=== PATIENT | female | born 1980 | race Caucasian/White ===

== ENCOUNTER 2016-04-19 22:22 | Emergency (ER) | payer SELFPAY ==
[~2016-04-19] VITALS: Ht 170.2 cm; Wt 52.0 kg
[~2016-04-19 22:22] MED LIST: ACET325T33 PO; IBUP-1542 PO
[2016-04-19 22:30] VITALS: Ht 170.2 cm; Wt 52.0 kg
== END 2016-04-19 23:08 | disposition left against medical advice (07) ==
LOC: E/R 22:22
DX: Z53.21 Procedure and treatment not carried out due to patient leaving prior to being seen by health care provider (principal)

== ENCOUNTER 2016-05-28 08:17 | Emergency (ER) | payer SELFPAY ==
[~2016-05-28] VITALS: Ht 170.2 cm; Wt 50.0 kg
[2016-05-28 08:20] VITALS: Ht 170.2 cm; Wt 50.0 kg
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
== END 2016-05-28 08:56 | disposition home or self-care (01) ==
LOC: FTE 08:17
DX: M25.512 Pain in left shoulder (principal)
CPT/HCPCS: 99282

== ENCOUNTER 2016-06-21 17:52 | Emergency (ER) | payer SELFPAY ==
[~2016-06-21] VITALS: Wt 44.0 kg
--- NOTE | 2016-06-21 18:28 | ERD ---
ER Documentation Chief Complaint Date/Time DATE: 06/21/16 TIME: 18:19 Chief Complaint FOUND SLEEPING ON SIDEWALK BY BYSTANDERS. NO TRAUMA. DENIES SI OR HI HPI This is a 35-year-old female but had multiple previous emergency room visits, that presents to the emergency department brought in by EMS after she was found sleeping on a sidewalk next to an empty bottle of alcohol. The patient states she denies any illicit drug use. There is no signs of trauma or drug paraphernalia. The patient denies any suicidal homicidal thoughts ideations. She did state that she had consumed the alcohol but this was several hours prior to arrival. She indicates she is not homeless. She denies any chest pain or pressure. She denies headache or neck pain. She has no shortness of breath at rest or exertion. ROS All systems reviewed and are negative except as per history of present illness. Medications Home Meds Active Scripts Ibuprofen* (Motrin*) 600 Mg Tab, 600 MG PO Q6H Y for PAIN AND OR ELEVATED TEMP, #30 TAB Prov:BRENDA HDZ NP 10/05/15 Acetaminophen* (Tylenol*) 325 Mg Tablet, 2 TAB PO Q6 Y for PAIN AND OR ELEVATED TEMP, #30 TAB Prov:HORACIO SHAH MD 06/10/15 Allergies Allergies: Coded Allergies: No Known Drug Allergies (Verified Allergy, Mild, 03/02/15) PMhx/Soc History of Surgery: Yes ("cyst removal") Anesthesia Reaction: No Hx Neurological Disorder: No Hx Respiratory Disorders: No Hx Cardiac Disorders: No Hx Psychiatric Problems: No Hx Miscellaneous Medical Probl: No Hx Alcohol Use: Yes Hx Substance Use: Yes (Marijuana) Hx Tobacco Use: Yes Physical Exam Vitals Vital Signs Date Time Temp Pulse Resp B/P Pulse Ox O2 Delivery O2 Flow Rate FiO2 06/21/16 17:57 98.5 101 20 130/75 98 Physical Exam Constitutional:Well-developed. Well-nourished. Patient is disheveled. HEENT:Normocephalic. Atraumatic.Pupils were equal round reactive to light. Moist mucous membranes.No tonsillar exudates. No nasal septal hematoma. No hemotympanum Neck: No nuchal rigidity. No lymphadenopathy. No posterior cervical spine tenderness or step-offs. Respiratory: Not using accessory muscles of respiration.Lungs were clear to auscultation bilaterally. No rhonchi. No rales. No wheezing. Cardiovascular: Regular rate regular rhythm.No murmurs. No rubs were appreciated.S1, S2 normal. Distal pulses are palpable 2+ bilaterally. GI: Abdomen was soft. Nontender. Non Distended. No pulsatile abdominal masses or bruits. No rebound. No guarding. Bowel sounds were present and normal. Muscle skeletal: Full range of motion of both the upper and lower extremities bilaterally.Normal muscle tone.No assymetrical calf tenderness or swelling. Skin: No petechia, no purpura. No lesions on the palms or the soles of the feet. No maculopapular rash. NEURO: Patient was alert, awake, orientated x3.No facial droop. Gait observed and normal with no ataxia.Speech had regular rate and rhythm. No focal neurological deficits. Patient did smell of alcohol. She denied suicidal homicidal thoughts or ideations Procedures/MDM This patient presented to the emergency department after she had been found sleeping on the sidewalk. There is no signs of trauma or drug paraphernalia. The patient was ambulatory, walking around the emergency department, talking to other patients and nursing staff approached me and indicated that the patient had eloped and left the hospital. No ancillary laboratory work had been drawn as the patient was refusing any blood work. The patient did not have IV access established. She had no ataxia no slurred speech and no signs of intracerebral hemorrhage. Therefore patient eloped without completion of treatment Departure Diagnosis: Primary Impression: Acute alcohol intoxication Complication of substance-induced condition: uncomplicated Qualified Code: F10.120 - Acute alcohol intoxication, uncomplicated Condition: Fair BELLE OREILLY Jun 21, 2016 18:28
== END 2016-06-21 18:34 | disposition left against medical advice (07) ==
LOC: E/R 17:52
DX: F10.120 Alcohol abuse with intoxication, uncomplicated (principal); F17.210 Nicotine dependence, cigarettes, uncomplicated
CPT/HCPCS: 99283

== ENCOUNTER 2016-07-26 12:51 | Emergency (ER) | payer SELFPAY ==
[~2016-07-26] VITALS: Wt 52.3 kg
--- NOTE | 2016-07-26 13:30 | ERD ---
ER Documentation Chief Complaint Date/Time DATE: 07/26/16 TIME: 13:23 Chief Complaint ALOC FOUND ON THE STREETS BIB RA AWAKE, REPOSIVE TO VOICE/REFUSES TO TALK HPI This 36-year-old [place] Reportedly refused to talk to paramedics however now she is wide awake and speaking. According to paramedics she has a history of transportation to the hospital for multiple uses of heroin in the past. She admits to drinking some alcohol earlier today but denies intoxication currently. She states that she has family coming to town and she is embarrassed about what happened. She denies any pain. Says that she did not have any injuries. States that she is otherwise healthy with no other medical problems except for drug abuse. States that she did not use heroin today and only drank alcohol with the last drink being 4 hours ago. Denies any thoughts of wanting to harm herself or others. ROS All systems reviewed and are negative except as per history of present illness. Medications Home Meds Discontinued Scripts Ibuprofen* (Motrin*) 600 Mg Tab, 600 MG PO Q6H Y for PAIN AND OR ELEVATED TEMP, #30 TAB Prov:BRENDA HDZ NP 10/05/15 Acetaminophen* (Tylenol*) 325 Mg Tablet, 2 TAB PO Q6 Y for PAIN AND OR ELEVATED TEMP, #30 TAB Prov:HORACIO SHAH MD 06/10/15 Allergies Allergies: Coded Allergies: No Known Drug Allergies (Verified Allergy, Mild, 07/26/16) PMhx/Soc Medical and Surgical Hx: Unable to obtain History of Surgery: Yes ("cyst removal") Anesthesia Reaction: No Hx Neurological Disorder: No Hx Respiratory Disorders: No Hx Cardiac Disorders: No Hx Psychiatric Problems: No Hx Miscellaneous Medical Probl: No Hx Alcohol Use: No (UNK) Hx Substance Use: No (UNK) Hx Tobacco Use: No (UNK) Smoking Status: Unknown if ever smoked Physical Exam Vitals Vital Signs Date Time Temp Pulse Resp B/P Pulse Ox O2 Delivery O2 Flow Rate FiO2 07/26/16 13:06 99.3 102 26 136/89 96 Physical Exam Const: [] No distress Head: Atraumatic Eyes: Normal Conjunctiva, EOMI, PRL ENT: Normal External Ears, Nose and Mouth. Moist mucous membranes of the mouth. Neck: Full range of motion..~No midline tenderness.. Resp: Clear to auscultation bilaterally Cardio: Regular rate and rhythm, no murmurs Abd: Soft, non tender, non distended. Normal bowel sounds Skin: No petechiae or rashes Back: No midline or flank tenderness Ext: No cyanosis, or edema, distal pulses intact all 4 extremities, small erythematous lesions resembling track thakkar in the left antecubital fossa. Neur: Awake and alert and oriented 3, cranial nerves II through XII intact, no cerebellar deficits, normal gait. Psych: Normal Mood and Affect. Very talkative Procedures/MDM 36-year-old female with alcohol intoxication. Still appears mildly intoxicated on arrival. Placed in a gurney on a monitor. She was ambulating in the emergency room well to go to the bathroom. According to staff she apparently eloped. She had a completely normal neurological exam no signs of trauma. Hospital staff is still trying to locate her. Departure Diagnosis: Primary Impression: Alcoholic intoxication Condition: Stable RAJANI CASAREZ DO July 26, 2016 13:30
== END 2016-07-26 16:28 | disposition left against medical advice (07) ==
LOC: E/R 12:51
DX: F10.129 Alcohol abuse with intoxication, unspecified (principal); R40.2132 Coma scale, eyes open, to sound, at arrival to emergency department; R40.2242 Coma scale, best verbal response, confused conversation, at arrival to emergency department; R40.2352 Coma scale, best motor response, localizes pain, at arrival to emergency department
CPT/HCPCS: 99283

== ENCOUNTER 2016-09-08 13:11 | Emergency (ER) | payer MEDICAID ==
[~2016-09-08] VITALS: Ht 165.1 cm; Wt 60.0 kg
[~2016-09-08 13:11] MED LIST changes: -ACET325T33 PO; +ALPR1TAB2; +CLON-412 PO; -IBUP-1542 PO; +MULTI PO
[2016-09-08 13:17] VITALS: Ht 165.1 cm; Wt 60.0 kg
--- NOTE | 2016-09-08 13:52 | ERD ---
ER Documentation Chief Complaint Date/Time DATE: 09/08/16 TIME: 13:50 Chief Complaint PT BIBA FOUND ETOH INTOXICATION ON SOMEONES LAWN. HPI This 36-year-old female who is found in the front yard of someone's house intoxicated. These neighbors called EMS to pick the patient up. The patient states that she is not homeless and has a house. She says she was drinking last night and said she fell in someone's yard and to stay there. Patient is denying any pain. Denies any hallucinations denies any suicidal or homicidal thoughts. Denies any headache chest pain back pain abdominal pain back pain. ROS All systems reviewed and are negative except as per history of present illness. Medications Home Meds Discontinued Reported Medications Alprazolam* (Xanax*) 1 Mg Tab 02/28/11 Clonazepam* (Klonopin*) 1 Mg Tablet, 1 MG PO DAILY 02/28/11 Allergies Allergies: Coded Allergies: Unknown: Unable to obtain (Unverified , 09/08/16) PMhx/Soc History of Surgery: No Anesthesia Reaction: No Hx Neurological Disorder: Yes (HX SEIZURES) Hx Respiratory Disorders: No Hx Cardiac Disorders: No Hx Psychiatric Problems: Yes (HX ADD) Hx Miscellaneous Medical Probl: No Hx Alcohol Use: Yes (ETOH ABUSE) Hx Substance Use: Yes (HX CRYSTAL METH ABUSE) Hx Tobacco Use: No Smoking Status: Current some day smoker FmHx Family History: No coronary disease Physical Exam Vitals Vital Signs Date Time Temp Pulse Resp B/P Pulse Ox O2 Delivery O2 Flow Rate FiO2 09/08/16 13:17 97.6 88 19 127/87 98 Physical Exam Const: Well-developed, well-nourished, appears slightly intoxicated but no slurred speech Head: Atraumatic, normocephalic Eyes: Normal Conjunctiva, PERRLA, EOMI, normal sclera, no nystagmus ENT: Normal External Ears, Nose and Mouth, moist mucus membranes. Neck: Full range of motion. No meningismus, no lymphadenopathy. Resp: Clear to auscultation bilaterally, no wheezing, rhonchi, rales Cardio: Regular rate and rhythm, no murmurs, S1 S2 present Abd: Soft, non tender x 4, non distended. Normal bowel sounds, no guarding or rebound, no pulsitile abdominal masses or bruits Skin: No petechiae or rashes, no ecchymosis , no maculopapular rash Back: No midline or flank tenderness Ext: No cyanosis, or edema, FROM x 4, normal inspection, neurovascularly intact x 4 Neur: Awake and alert, STR 5/5 x 4, sensation intact x 4, no focal findings, cerebellum intact Psych: Normal Mood and Affect Procedures/MDM Patient refused any blood work and CAT scan of head. Patient left the ER without signing AMA. She says she feels fine rapidly left the ER Departure Diagnosis: Primary Impression: Alcoholic intoxication Complication of substance-induced condition: with unspecified complication Qualified Code: F10.129 - Alcoholic intoxication, with unspecified complication Condition: CEDRIC Hartman DO Sep 08, 2016 13:52
== END 2016-09-08 13:51 | disposition left against medical advice (07) ==
LOC: MERGE 13:11 → E/R 13:11
DX: F10.129 Alcohol abuse with intoxication, unspecified (principal); F17.210 Nicotine dependence, cigarettes, uncomplicated
CPT/HCPCS: 99283

== ENCOUNTER 2016-09-16 00:43 | Emergency (ER) | payer MEDICAID, OTHER ==
[~2016-09-16 00:43] MED LIST changes: -ALPR1TAB2; -CLON-412 PO
[2016-09-16 02:15] LABS: ADD SCAN DIFF NO
[2016-09-16 02:17] LABS: BASOPHIL # 0.1 10^3/ul (0.0-0.1); BASOPHILS % 0.8 % (0.0-2.0); EOSINOPHILS # 0.3 10^3/ul (0.0-0.5); EOSINOPHILS % 3.7 % (0.0-7.0); HEMATOCRIT 36.9 % (37.0-47.0); HEMOGLOBIN 12.1 g/dl (12.0-16.0); LYMPHOCYTES # 3.3 10^3/ul (0.8-2.9); LYMPHOCYTES % 42.9 % (15.0-51.0); MEAN CORPUSCULAR HEMOGLOBIN 31.8 pg (29.0-33.0); MEAN CORPUSCULAR HGB CONC 32.8 g/dl (32.0-37.0); MEAN CORPUSCULAR VOLUME 97.1 fl (82.0-101.0); MEAN PLATELET VOLUME 9.5 fl (7.4-10.4); MONOCYTE # 0.4 10^3/ul (0.3-0.9); MONOCYTES % 5.8 % (0.0-11.0); NEUTROPHIL # 3.6 10^3/ul (1.6-7.5); NEUTROPHILS % 46.5 % (39.0-77.0); PLATELET COUNT 224 10^3/UL (140-415); RED CELL DISTRIBUTION WIDTH 12.9 % (11.5-14.5); WHITE BLOOD COUNT 7.7 10^3/ul (4.8-10.8)
[2016-09-16 02:36] VITALS: TEMP 98.1
[2016-09-16 02:36] LABS: ALANINE AMINOTRANSFERASE 154 IU/L (13-69); ALBUMIN/GLOBULIN RATIO 1.17; ALKALINE PHOSPHATASE 135 IU/L (42-121); ANION GAP 22 (8-16); ASPARTATE AMINO TRANSFERASE 380 IU/L (15-46); BLOOD UREA NITROGEN 10 mg/dl (7-20); CALCIUM 8.4 mg/dl (8.4-10.2); CARBON DIOXIDE 23 mmol/L (21-31); CHLORIDE 107 mmol/L (97-110); CREATININE 0.47 mg/dl (0.44-1.00); GLUCOSE 99 mg/dl (70-220); POTASSIUM 3.3 mmol/L (3.5-5.1); SODIUM 149 mmol/L (135-144); TOTAL PROTEIN 7.4 g/dl (6.1-8.1)
[2016-09-16 02:43] LABS: ACETAMINOPHEN < 10.0 ug/ml (10.0-30.0); SALICYLATE < 1.0 mg/dl (5.0-30.0)
--- NOTE | 2016-09-16 05:09 | ERD ---
ER Documentation Chief Complaint Date/Time DATE: 09/16/16 TIME: 05:09 Chief Complaint bib RA 39 found altered in [place] parking lot HPI 42-year-old female brought in by rescue 39 drink alcohol. Patient comes in [facility] administering alcohol. No evidence of trauma. No other current complaints. ROS All systems reviewed and are negative except as per history of present illness. PMhx/Soc Medical and Surgical Hx: Unable to obtain Hx Alcohol Use: Yes Hx Tobacco Use: Yes Smoking Status: Current every day smoker Physical Exam Vitals Vital Signs Date Time Temp Pulse Resp B/P Pulse Ox O2 Delivery O2 Flow Rate FiO2 09/16/16 04:31 82 18 153/93 98 Room Air 09/16/16 02:36 98.1 77 20 130/92 97 Room Air 09/16/16 00:56 98.1 100 17 152/99 96 Physical Exam Const: [] Head: Atraumatic Eyes: Normal Conjunctiva ENT: Normal External Ears, Nose and Mouth. Neck: Full range of motion..~ No meningismus. Resp: Clear to auscultation bilaterally Cardio: Regular rate and rhythm, no murmurs Abd: Soft, non tender, non distended. Normal bowel sounds Skin: No petechiae or rashes Back: No midline or flank tenderness Ext: No cyanosis, or edema Neur: Awake and alert Psych: Normal Mood and Affect Result Diagram: 09/16/1614309/16/16143 Results 24 hrs Laboratory Tests Test 09/16/16 01:44 White Blood Count 7.710^3/ul Red Blood Count 3.8010^6/ul Hemoglobin 12.1g/dl Hematocrit 36.9% Mean Corpuscular Volume 97.1fl Mean Corpuscular Hemoglobin 31.8pg Mean Corpuscular Hemoglobin Concent 32.8g/dl Red Cell Distribution Width 12.9% Platelet Count 15178^3/UL Mean Platelet Volume 9.5fl Neutrophils % 46.5% Lymphocytes % 42.9% Monocytes % 5.8% Eosinophils % 3.7% Basophils % 0.8% Nucleated Red Blood Cells % 0.0/100WBC Neutrophils # 3.610^3/ul Lymphocytes # 3.310^3/ul Monocytes # 0.410^3/ul Eosinophils # 0.310^3/ul Basophils # 0.110^3/ul Nucleated Red Blood Cells # 0.010^3/ul Sodium Level 149mmol/L Potassium Level 3.3mmol/L Chloride Level 107mmol/L Carbon Dioxide Level 23mmol/L Anion Gap 22 Blood Urea Nitrogen 10mg/dl Creatinine 0.47mg/dl Glucose Level 99mg/dl Calcium Level 8.4mg/dl Total Bilirubin 0.0mg/dl Direct Bilirubin 0.00mg/dl Indirect Bilirubin 0.0mg/dl Aspartate Amino Transf (AST/SGOT) 380IU/L Alanine Aminotransferase (ALT/SGPT) 154IU/L Alkaline Phosphatase 135IU/L Total Protein 7.4g/dl Albumin 4.0g/dl Globulin 3.40g/dl Albumin/Globulin Ratio 1.17 Serum HCG, Qualitative NEGATIVE Salicylates Level < 1.0mg/dl Acetaminophen Level < 10.0ug/ml Ethyl Alcohol Level 289.0mg/dl Procedures/MDM Medical decision-makin-year-old female evidence of alcohol consumption. No evidence of trauma. At this point clinically stable for outpatient management. Alert and oriented times work oriented speech good decision-making capacity and ability to pass a road test and negotiate community. Advised to stop drinking. Departure Diagnosis: Primary Impression: Alcoholic intoxication Complication of substance-induced condition: uncomplicated Qualified Code: F10.120 - Alcoholic intoxication, uncomplicated Condition: Stable Patient Instructions: Alcohol Intoxication LIN KIMBROUGH Sep 16, 2016 05:09
[2016-09-16 08:39] VITALS: BP 160/99; PULSE 92; RESP 16
== END 2016-09-16 10:30 | disposition left against medical advice (07) ==
LOC: EDBD 00:43 → E/R 00:43 → MERGE 00:43 → E/R 10:30
DX: F10.120 Alcohol abuse with intoxication, uncomplicated (principal); R40.2252 Coma scale, best verbal response, oriented, at arrival to emergency department; F17.210 Nicotine dependence, cigarettes, uncomplicated; R40.2142 Coma scale, eyes open, spontaneous, at arrival to emergency department; R40.2362 Coma scale, best motor response, obeys commands, at arrival to emergency department
CPT/HCPCS: 36415; 80053; 80306; 84703; 85025; Z7502; 99283

== ENCOUNTER 2016-09-28 20:24 | Emergency (ER) | payer MEDICAID, OTHER ==
[~2016-09-28] VITALS: Ht 167.6 cm; Wt 50.0 kg
[2016-09-28 20:27] VITALS: Ht 167.6 cm; Wt 50.0 kg
--- NOTE | 2016-09-28 20:51 | RADRPT ---
PROCEDURE: CT Head without. CLINICAL INDICATION: Altered mental status. TECHNIQUE: The study was performed utilizing a multi-slice, multidetector CT scanner. Direct spira l 1 mm axial sections were obtained through the head without the use of intravenous contrast materia l. 1 or more of the following dose reduction techniques were utilized: Automated exposure control, adjustment of the mA and/or kV according to patient's size, iterative reconstruction technique. Co brayden and sagittal reformations were obtained. The images were reviewed on a PACS workstation. RADIATION DOSE: CTDIvol: 45.0 mGyDLP: 720.2 mGy-cm COMPARISON: No prior studies are available for comparison. FINDINGS: There is moderate amount of motion artifact through the skull base/lower cranial vault, limiting alis luation in this region. There is no intracranial hemorrhage, extra-axial fluid collection, mass les ion, midline shift or hydrocephalus. There is moderate atherosclerosis involving the right supracli noid internal carotid artery, which is nonspecific. The ventricles, sulci and cisterns are within n ormal limits. The white matter is unremarkable. The bolden-white matter differentiation is preserved . The basal cisterns are patent. The midline structures are intact. The orbits, calvarium and ext racranial soft tissues are normal in appearance. The visualized paranasal sinuses, mastoid air cells and middle ear cavities are normally aerated. There is pneumatization of the bilateral petrous apic es without evidence of inflammatory changes, normal variant. IMPRESSION: 1. No acute intracranial abnormality. No intracranial hemorrhage, extra-axial fluid collection, ma ss lesion or hydrocephalous. 2. Moderate atherosclerosis involving the right supraclinoid internal carotid artery, which is nons pecific. RPTAT: HGAS .Lukas Rocha MD, MD Date Time Electronically viewed and signed by .Lukas Rocha MD, MD on 09/28/2016 20:51 .S/
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
[2016-09-28 21:33] VITALS: BP 125/78; PULSE 77; RESP 16; TEMP 98.6
== END 2016-09-28 21:49 | disposition home or self-care (01) ==
LOC: MERGE 20:24 → EDBD 20:24 → E/R 20:24
DX: F10.121 Alcohol abuse with intoxication delirium (principal); R41.82 Altered mental status, unspecified
CPT/HCPCS: 70450; 82962; Z7502

== ENCOUNTER 2016-10-17 15:59 | Emergency (ER) | payer MEDICAID ==
[~2016-10-17] VITALS: Ht 165.1 cm; Wt 65.0 kg
[2016-10-17 16:07] VITALS: Ht 165.1 cm; Wt 65.0 kg
[2016-10-17] MEDS: IBUPROFEN 800 MG TAB PO ONE ×2 (16:21→16:27)
--- NOTE | 2016-10-17 16:41 | RADRPT ---
PROCEDURE: XR Hand. CLINICAL INDICATION: Right hand pain. TECHNIQUE: Three views of the right hand were obtained. COMPARISON: None available. FINDINGS: There is no acute fracture, dislocation, or other osteoarticular abnormality. The alignm ent is normal and the soft tissues are unremarkable. There is no radiopaque foreign body. The osse ous mineralization is within normal limits. IMPRESSION: 1. Unremarkable right hand x-ray series. RPTAT: HLBP .Matthew Patel MD, MD Date Time Electronically viewed and signed by .Matthew Patel MD, on 10/17/2016 16:41 .P/
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
[2016-10-17] MEDS ORDERED: LORAZEPAM 0.5 MG TAB PO ONE (17:00)
== END 2016-10-17 17:56 | disposition home or self-care (01) ==
LOC: E/R 15:59
DX: F10.10 Alcohol abuse, uncomplicated (principal); S60.221A Contusion of right hand, initial encounter; Y04.0XXA Assault by unarmed brawl or fight, initial encounter; Y92.9 Unspecified place or not applicable; Z87.891 Personal history of nicotine dependence
CPT/HCPCS: 73130; Z7502; Z7610

== ENCOUNTER 2016-11-11 11:35 | Emergency (ER) | payer OTHER, MEDICAID ==
[~2016-11-11] VITALS: Ht 167.6 cm; Wt 50.0 kg
[2016-11-11 11:35] VITALS: Ht 167.6 cm; Wt 50.0 kg
--- NOTE | 2016-11-11 12:08 | RADRPT ---
PROCEDURE: Chest Radiograph. CLINICAL INDICATION: To mental status TECHNIQUE: Single frontal chest radiograph. COMPARISON: None available FINDINGS: The cardiomediastinal silhouette is within normal limits. No infiltrate or effusion is seen. Th e bones are intact. IMPRESSION: 1. Unremarkable chest radiograph. RPTAT: HJBF .Kris Dawn MD, MD Date Time Electronically viewed and signed by .Kris Dawn MD, on 11/11/2016 12:08 .B/
[2016-11-11] MEDS ORDERED: SOD CHLORIDE 0.9% 1,000 ML IV ONE (12:30)
[2016-11-11 12:50] LABS: BASOPHIL # 0.1 10^3/ul (0.0-0.1); BASOPHILS % 0.8 % (0.0-2.0); EOSINOPHILS # 0.3 10^3/ul (0.0-0.5); EOSINOPHILS % 3.6 % (0.0-7.0); HEMATOCRIT 38.3 % (37.0-47.0); HEMOGLOBIN 13.2 g/dl (12.0-16.0); LYMPHOCYTES # 2.3 10^3/ul (0.8-2.9); LYMPHOCYTES % 29.7 % (15.0-51.0); MEAN CORPUSCULAR HEMOGLOBIN 33.3 pg (29.0-33.0); MEAN CORPUSCULAR HGB CONC 34.5 g/dl (32.0-37.0); MEAN CORPUSCULAR VOLUME 96.7 fl (82.0-101.0); MEAN PLATELET VOLUME 9.9 fl (7.4-10.4); MONOCYTE # 0.5 10^3/ul (0.3-0.9); MONOCYTES % 6.1 % (0.0-11.0); NEUTROPHILS % 59.4 % (39.0-77.0); PLATELET COUNT 215 10^3/UL (140-415); RED BLOOD COUNT 3.96 10^6/ul (4.20-5.40); RED CELL DISTRIBUTION WIDTH 12.1 % (11.5-14.5); WHITE BLOOD COUNT 7.8 10^3/ul (4.8-10.8)
[2016-11-11 13:06] LABS: INR 0.87; PROTIME 11.8 Sec (12.2-14.2); PT RATIO 0.9
[2016-11-11 13:07] LABS: PARTIAL THROMBOPLASTIN TIME 26.9 Sec (25.0-35.0)
[2016-11-11 13:09] LABS: ALANINE AMINOTRANSFERASE 79 IU/L (13-69); ALBUMIN 3.9 g/dl (3.3-4.9); ALKALINE PHOSPHATASE 121 IU/L (42-121); ANION GAP 17 (8-16); ASPARTATE AMINO TRANSFERASE 227 IU/L (15-46); BILIRUBIN,INDIRECT 0.4 mg/dl (0-1.1); BILIRUBIN,TOTAL 0.4 mg/dl (0.2-1.3); BLOOD UREA NITROGEN 17 mg/dl (7-20); CALCIUM 8.8 mg/dl (8.4-10.2); CARBON DIOXIDE 21 mmol/L (21-31); CHLORIDE 105 mmol/L (97-110); CREATININE 0.69 mg/dl (0.44-1.00); GLUCOSE 86 mg/dl (70-220); POTASSIUM 3.4 mmol/L (3.5-5.1); SODIUM 140 mmol/L (135-144); TOTAL PROTEIN 8.2 g/dl (6.1-8.1)
[2016-11-11 13:17] LABS: ACETAMINOPHEN < 10.0 ug/ml (10.0-30.0); SALICYLATE < 1.0 mg/dl (5.0-30.0)
--- NOTE | 2016-11-11 13:39 | RADRPT ---
PROCEDURE: CT Brain without contrast. CLINICAL INDICATION: Altered Mental Status TECHNIQUE: A multiplanar CT of the brain was performed on a CT scanner utilizing axial imaging fro m the skull base through the vertex without IV contrast. The CTDIvol is 45.01 mGy and the DLP is 63 0.2 mGycm. One or more of the following dose reduction techniques were utilized: Automated exposur e control, adjustment of the mA and/or kV according to patient size, use of iterative reconstruction technique. COMPARISON: None FINDINGS: No evidence of intracranial hemorrhage or abnormal extra-axial fluid collection. The brain parenchyma is normal attenuation morphology with preservation of bolden white differentiatio n and age appropriate size of the ventricles and subarachnoid spaces. Minimal mucosal thickening in the ethmoid air cells. Mildly ectatic and calcified right supraclinoid internal carotid artery. CT or MR angiography may be considered for further evaluation. The basal cisterns, posterior fossa contents, brainstem, craniocervical junction, orbits, pituitary axis, paranasal sinuses, mastoid air cells, and calvarium are unremarkable. IMPRESSION: 1. No intracranial hemorrhage or acute intracranial abnormality. 2. Mildly ectatic and calcified right supraclinoid internal carotid artery. CT or MRI angiography i n the considered for further evaluation. RPTAT:AAJJ Physician Percy Date Time Electronically viewed and signed by Physician Percy on 11/11/2016 13:39 PADMA/
[2016-11-11] MEDS ORDERED: POTASSIUM CHLORIDE (SR) 20 MEQ TAB PO STA (15:04)
--- NOTE | 2016-11-11 15:08 | ERA ---
ER Documentation Chief Complaint Date/Time DATE: 11/11/16 TIME: 15:01 Chief Complaint Altered mental status HPI The patient is a 36-year-old female, presenting with acute altered mental status. She was [place] the park, unable to provide a history, she came in as Yuly Tucker. The history is obtained from the channel program manager Past medical/surgical history/social history/review of system: Unable to obtain due to her condition ROS All systems reviewed and are negative except as per history of present illness. Medications Home Meds Unable to Obtain Active Prescriptions or Reported Meds Allergies Allergies: Coded Allergies: Unknown: Unable to obtain (Unverified , 11/11/16) PT UNREPONSIVE PMhx/Soc Medical and Surgical Hx: Unable to obtain Hx Alcohol Use: Yes Hx Substance Use: No (UNKNOWN) Hx Tobacco Use: No Smoking Status: Unknown if ever smoked Physical Exam Vitals Vital Signs Date Time Temp Pulse Resp B/P Pulse Ox O2 Delivery O2 Flow Rate FiO2 11/11/16 13:18 97.8 92 15 145/103 99 Room Air 11/11/16 11:35 97.8 94 16 117/79 98 Physical Exam Const: No acute distress. Head: Atraumatic. Eyes: Normal Conjunctiva. ENT: Normal External Ears, Nose and Mouth. Neck: Full range of motion. No meningismus. Resp: Clear to auscultation bilaterally. Cardio: Regular rate and rhythm. Abd: Soft, non distended, normal bowel sounds, non tender. Skin: No petechiae or rashes. Back: No midline or flank tenderness. Ext: No cyanosis, or edema. Neur: Limited due to her condition Psych: Limited due to her condition Result Diagram: 11/11/16 1210 11/11/16 1210 Results 24 hrs Laboratory Tests Test 11/11/16 11:54 11/11/16 12:10 Bedside Glucose 87mg/dL White Blood Count 7.810^3/ul Red Blood Count 3.9610^6/ul Hemoglobin 13.2g/dl Hematocrit 38.3% Mean Corpuscular Volume 96.7fl Mean Corpuscular Hemoglobin 33.3pg Mean Corpuscular Hemoglobin Concent 34.5g/dl Red Cell Distribution Width 12.1% Platelet Count 48235^3/UL Mean Platelet Volume 9.9fl Neutrophils % 59.4% Lymphocytes % 29.7% Monocytes % 6.1% Eosinophils % 3.6% Basophils % 0.8% Nucleated Red Blood Cells % 0.0/100WBC Neutrophils # (Manual) 4.610^3/ul Lymphocytes # 2.310^3/ul Monocytes # 0.510^3/ul Eosinophils # 0.310^3/ul Basophils # 0.110^3/ul Nucleated Red Blood Cells # 0.010^3/ul Prothrombin Time 11.8Sec Prothrombin Time Ratio 0.9 INR International Normalized Ratio 0.87 Activated Partial Thromboplast Time 26.9Sec Sodium Level 140mmol/L Potassium Level 3.4mmol/L Chloride Level 105mmol/L Carbon Dioxide Level 21mmol/L Anion Gap 17 Blood Urea Nitrogen 17mg/dl Creatinine 0.69mg/dl Glucose Level 86mg/dl Calcium Level 8.8mg/dl Total Bilirubin 0.4mg/dl Direct Bilirubin 0.00mg/dl Indirect Bilirubin 0.4mg/dl Aspartate Amino Transf (AST/SGOT) 227IU/L Alanine Aminotransferase (ALT/SGPT) 79IU/L Alkaline Phosphatase 121IU/L Total Protein 8.2g/dl Albumin 3.9g/dl Globulin 4.30g/dl Albumin/Globulin Ratio 0.90 Serum HCG, Qualitative NEGATIVE Salicylates Level < 1.0mg/dl Acetaminophen Level < 10.0ug/ml Ethyl Alcohol Level 199.0mg/dl Current Medications Medications (Trade) Dose Ordered Sig/Sukhdeep Route PRN Reason Start Time Stop Time Status Last Admin Dose Admin Sodium Chloride (NS) 1,000 ml @ 1,000 mls/hr Q1H ONCE IV 11/11/16 12:30 11/11/16 13:29 DC 11/11/16 12:59 Procedures/MDM [place] [address] Radiology Main Line: [phone] DIAGNOSTIC IMAGING REPORT Patient: YULY TUCKER : 03/03/1974 Age: 42 Sex: F MR #: [id number] DOS: 11/11/16 1151 Ordering MD: HORACIO SHAH MD Location: E/R Room/Bed: PROCEDURE: Chest Radiograph. CLINICAL INDICATION: To mental status TECHNIQUE: Single frontal chest radiograph. COMPARISON: None available FINDINGS: The cardiomediastinal silhouette is within normal limits. No infiltrate or effusion is seen. The bones are intact. IMPRESSION: 1. Unremarkable chest radiograph. RPTAT: HJBF .Kris Dawn MD, MD Date Time Electronically viewed and signed by .Kris Dawn MD, MD on 2016 12:08 .B/ CC: HORACIO SHAH MD [place] [address] Radiology Main Line: [phone] DIAGNOSTIC IMAGING REPORT Patient: YULY TUCKER : 03/03/1974 Age: 42 Sex: F MR #: [id number] DOS: 11/11/16 1151 Ordering MD: HORACIO SHAH MD Location: E/R Room/Bed: PROCEDURE: CT Brain without contrast. CLINICAL INDICATION: Altered Mental Status TECHNIQUE: A multiplanar CT of the brain was performed on a CT scanner utilizing axial imaging from the skull base through the vertex without IV contrast. The CTDIvol is 45.01 mGy and the DLP is 630.2 mGycm. One or more of the following dose reduction techniques were utilized: Automated exposure control, adjustment of the mA and/or kV according to patient size, use of iterative reconstruction technique. COMPARISON: None FINDINGS: No evidence of intracranial hemorrhage or abnormal extra-axial fluid collection. The brain parenchyma is normal attenuation morphology with preservation of bolden white differentiation and age appropriate size of the ventricles and subarachnoid spaces. Minimal mucosal thickening in the ethmoid air cells. Mildly ectatic and calcified right supraclinoid internal carotid artery. CT or MR angiography may be considered for further evaluation. The basal cisterns, posterior fossa contents, brainstem, craniocervical junction , orbits, pituitary axis, paranasal sinuses, mastoid air cells, and calvarium are unremarkable. IMPRESSION: 1. No intracranial hemorrhage or acute intracranial abnormality. 2. Mildly ectatic and calcified right supraclinoid internal carotid artery. CT or MRI angiography in the considered for further evaluation. RPTAT:AAJJ Scar Hdz Physician Date Time Electronically viewed and signed by Scar Hdz Physician on 11/11/2016 13:39 PADMA/ CC: HORACIO SHAH MD EKG: Read by emergency physician Rate/Rhythm: Normal Sinus Rhythm 91 beats/min QRS, ST, T-waves: No ST elevation, no T inversion, LAE Impression: Abnormal EKG MEDICAL MAKING DECISION: The patient is a 36-year-old female, presenting with acute alcohol intoxication. She was unable to provide any history upon arrival to the ER, however after many hours in the ER, she is now awake, alert, able to answer question appropriately and ambulate independently; she is stable for outpatient follow-up. She was treated with 1 L normal saline for clinical dehydration, potassium chloride 20 daily: P.o. for acute hypokalemia with good response The differential diagnoses considered include but are not limited to medication non-compliance, alcohol intoxication or withdrawal, drug intoxication or withdrawal, endocrine disorder, trauma, CVA, tumor, metabolic encephalopathy, septic encephalopathy. Departure Diagnosis: Primary Impression: Alcohol abuse Additional Impressions: Hypokalemia Dehydration Condition: Good Patient Instructions: Alcohol Abuse Referrals: [facility] YOU HAVE RECEIVED A MEDICAL SCREENING EXAM AND THE RESULTS INDICATE THAT YOU DO NOT HAVE A CONDITION THAT REQUIRES URGENT TREATMENT IN THE EMERGENCY DEPARTMENT. FURTHER EVALUATION AND TREATMENT OF YOUR CONDITION CAN WAIT UNTIL YOU ARE SEEN IN YOUR DOCTORS OFFICE WITHIN THE NEXT 1-2 DAYS. IT IS YOUR RESPONSIBILITY TO MAKE AN APPOINTMENT FOR FOLOW-UP CARE. IF YOU HAVE A PRIMARY DOCTOR --you should call your primary doctor and schedule an appointment IF YOU DO NOT HAVE A PRIMARY DOCTOR YOU CAN CALL OUR PHYSICIAN REFERRAL HOTLINE AT IF YOU CAN NOT AFFORD TO SEE A PHYSICIAN YOU CAN CHOSE FROM THE FOLLOWING [facility] [address] [facility]. [facility] [address] [facility]. [facility] [address] [facility] [facility] [address] [facility] [address] [facility]. [facility]. [address] [facility]. [facility] YOU HAVE RECEIVED A MEDICAL SCREENING EXAM AND THE RESULTS INDICATE THAT YOU DO NOT HAVE A CONDITION THAT REQUIRES URGENT TREATMENT IN THE EMERGENCY DEPARTMENT. FURTHER EVALUATION AND TREATMENT OF YOUR CONDITION CAN WAIT UNTIL YOU ARE SEEN IN YOUR DOCTORS OFFICE WITHIN THE NEXT 1-2 DAYS. IT IS YOUR RESPONSIBILITY TO MAKE AN APPOINTMENT FOR FOLOW-UP CARE. IF YOU HAVE A PRIMARY DOCTOR --you should call your primary doctor and schedule and appointment IF YOU DO NOT HAVE A PRIMARY DOCTOR YOU CAN CALL OUR PHYSICIAN REFERRAL HOTLINE AT . IF YOU CAN NOT AFFORD TO SEE A PHYSICIAN YOU CAN CHOSE FROM THE FOLLOWING COUNTS INCLUDE 234 BEDS AT THE [facility] INSTITUTIONS: [place] [address] Additional Instructions: County: Go to any of the following [facility] hospitals in the next 1-[address]+[facility] [address] [place] [id number] HORACIO SHAH MD Nov 11, 2016 15:08
[2016-11-11 15:40] VITALS: BP 138/86; PULSE 88; RESP 18; TEMP 97.9
== END 2016-11-11 15:42 | disposition home or self-care (01) ==
LOC: MERGE 11:35 → EDBD 11:35 → E/R 11:35
DX: F10.120 Alcohol abuse with intoxication, uncomplicated (principal); E87.6 Hypokalemia; E86.0 Dehydration; R40.2142 Coma scale, eyes open, spontaneous, at arrival to emergency department; R40.2252 Coma scale, best verbal response, oriented, at arrival to emergency department; R40.2362 Coma scale, best motor response, obeys commands, at arrival to emergency department
CPT/HCPCS: 36415; 70450; 71010; 80053; 80306; 82962; 84703; 85025; 85610; 85730; 93005; 99285; J7030

== ENCOUNTER 2016-11-12 17:29 | Emergency (ER) | payer SELFPAY | END 2016-11-12 19:08 | disposition left against medical advice (07) | LOC: E/R 17:29 | DX: Z53.21 Procedure and treatment not carried out due to patient leaving prior to being seen by health care provider (principal) ==

== ENCOUNTER 2016-11-28 14:25 | Emergency (ER) | payer SELFPAY ==
[~2016-11-28] VITALS: Ht 170.2 cm; Wt 45.0 kg
[2016-11-28] MEDS ORDERED: SOD CHLORIDE 0.9% 1,000 ML IV STA (14:42)
[2016-11-28 16:06] VITALS: Ht 170.2 cm; Wt 45.0 kg
--- NOTE | 2016-11-28 16:15 | ERD ---
ER Documentation Chief Complaint Date/Time DATE: 11/28/16 TIME: 16:11 Chief Complaint BIBA FOUND UNCONSCIOUS ON SIDEWALK, ODOR OF ETOH NOTED HPI This 36-year-old female is brought in by paramedics after [employer] called because the patient was sleeping near the street. Patient did not provide the paramedics with any information. She did not wake up here until the blood pressure cuff is checking her blood pressure and she suddenly woke up. She stated that she had drank alcohol but feels well. She denies any trauma or pain currently. ROS All systems reviewed and are negative except as per history of present illness. Medications Home Meds Unable to Obtain Active Prescriptions or Reported Meds Allergies Allergies: Coded Allergies: No Known Drug Allergies (Verified Allergy, Mild, 11/28/16) PMhx/Soc History of Surgery: No Anesthesia Reaction: No Hx Neurological Disorder: Yes (HX SEIZURES, ADHD) Hx Respiratory Disorders: No Hx Cardiac Disorders: No Hx Psychiatric Problems: Yes (ANXIETY) Hx Miscellaneous Medical Probl: No Hx Alcohol Use: Yes Hx Substance Use: No (UNKNOWN) Hx Tobacco Use: No Physical Exam Vitals Vital Signs Date Time Temp Pulse Resp B/P Pulse Ox O2 Delivery O2 Flow Rate FiO2 11/28/16 16:06 98.1 103 20 131/77 97 Physical Exam Const: [] Distress, disheveled appearance Head: Atraumatic Eyes: Normal Conjunctiva, EOMI, PERRLA ENT: Normal External Ears, Nose and Mouth. Neck: Full range of motion..~ No meningismus. Resp: Clear to auscultation bilaterally Cardio: Regular rate and rhythm, no murmurs Abd: Soft, non tender, non distended. Normal bowel sounds Skin: No petechiae or rashes Back: No midline or flank tenderness Ext: No cyanosis, or edema, no deformities, abrasions or lacerations, distal pulses intact. Neur: Awake and alert and oriented 3, no slurred speech, certain cranial nerves II through XII intact, no cerebellar deficits, normal gait. Psych: Intermittent mild agitation. Results 24 hrs Current Medications Medications (Trade) Dose Ordered Sig/Sukhdeep Route PRN Reason Start Time Stop Time Status Last Admin Dose Admin Sodium Chloride (NS) 1,000 ml @ 1,000 mls/hr Q1H STAT IV 11/28/16 14:42 11/28/16 15:41 DC Procedures/MDM Patient states that she does not remember going to sleep on the street. Admits to drinking alcohol heavily last night. She is alert and oriented 3 and refusing all diagnostic testing. She will not allow an IV started and does not want any imaging. Is ambulating well and responding appropriately to all questions. I am still having her sign out AGAINST MEDICAL ADVICE because I prefer to get a further workup and episode of syncope in which the paramedics were not able to awaken the patient. Instructed to follow-up with primary care tomorrow or return immediately to the emergency room for any concerning symptoms. Departure Diagnosis: Primary Impression: Syncope Additional Impression: Alcohol abuse Condition: Stable Patient Instructions: Causes of Syncope Referrals: [facility] YOU HAVE RECEIVED A MEDICAL SCREENING EXAM AND THE RESULTS INDICATE THAT YOU DO NOT HAVE A CONDITION THAT REQUIRES URGENT TREATMENT IN THE EMERGENCY DEPARTMENT. FURTHER EVALUATION AND TREATMENT OF YOUR CONDITION CAN WAIT UNTIL YOU ARE SEEN IN YOUR DOCTORS OFFICE WITHIN THE NEXT 1-2 DAYS. IT IS YOUR RESPONSIBILITY TO MAKE AN APPOINTMENT FOR FOLOW-UP CARE. IF YOU HAVE A PRIMARY DOCTOR --you should call your primary doctor and schedule an appointment IF YOU DO NOT HAVE A PRIMARY DOCTOR YOU CAN CALL OUR PHYSICIAN REFERRAL HOTLINE AT IF YOU CAN NOT AFFORD TO SEE A PHYSICIAN YOU CAN CHOSE FROM THE FOLLOWING [facility] [address] [facility]. [facility] [address] [facility] [address] [facility] [address] [facility]. [facility] [address] [facility]. [facility]. [address] Additional Instructions: Call your primary care doctor TOMORROW for a SAME-DAY APPOINTMENT.Tell the company secretary that you were referred from this facility.Call again if your condition worsens before your appointment time. RAJANI CASAREZ DO Nov 28, 2016 16:15
== END 2016-11-28 16:12 | disposition left against medical advice (07) ==
LOC: E/R 14:25
DX: R55 Syncope and collapse (principal); F10.10 Alcohol abuse, uncomplicated
CPT/HCPCS: 93005; 99283; J7030